=== PATIENT | male | born 1950 ===

== ENCOUNTER 2021-06-02 13:27 | Emergency (ER) | payer OTHER ==
[2021-06-02 14:00] VITALS: RESP 18; TEMP 98.4
--- NOTE | 2021-06-02 16:15 | ED ---
General Adult HPI - General Chief complaint: Recheck/Abnormal Lab/Rx Stated complaint: needs covid test Time Seen by Provider: 06/02/21 17:00 Source: patient, RN notes reviewed Mode of arrival: ambulatory Limitations: no limitations - History of Present Illness Initial comments: 70-year-old male, alert and oriented 4, presents to the emergency room with complaints [place] He denies any symptoms, he denies any exposures. Patient denies any medical problems. He is a nonsmoker. Severity scale (1-10): 0 Associated Symptoms: denies other symptoms Treatments Prior to Arrival: none - Related Data Allergies Allergy/AdvReac Type Severity Reaction Status Date / Time No Known Allergies Allergy Verified 06/02/21 14:00 Review of Systems ROS Statement: Those systems with pertinent positive or pertinent negative responses have been documented in the HPI. ROS Other: All systems not noted in ROS Statement are negative. Past Medical History Past Medical History: No Reported History History of Any Multi-Drug Resistant Organisms: None Reported Additional Past Surgical History / Comment(s): Kidney stone removal Smoking Status: Former smoker Past Alcohol Use History: None Reported Past Drug Use History: None Reported General Exam Limitations: no limitations General appearance: alert, in no apparent distress Head exam: Present: atraumatic, normocephalic, normal inspection Eye exam: Present: normal appearance, PERRL, EOMI. Absent: scleral icterus, conjunctival injection, periorbital swelling ENT exam: Present: normal exam, normal oropharynx, mucous membranes moist Neck exam: Present: normal inspection, full ROM. Absent: tenderness, meningismus, lymphadenopathy, thyromegaly Respiratory exam: Present: normal lung sounds bilaterally. Absent: respiratory distress, wheezes, rales, rhonchi, stridor, chest wall tenderness, accessory muscle use, decreased breath sounds, prolonged expiratory Cardiovascular Exam: Present: regular rate, normal rhythm, normal heart sounds, other (Blood pressure elevated 206/114 in triage, patient denies history of hypertension.). Absent: systolic murmur, diastolic murmur, rubs, gallop, clicks GI/Abdominal exam: Present: soft, normal bowel sounds. Absent: distended, tenderness, guarding, rebound, rigid Extremities exam: Present: normal inspection, full ROM, normal capillary refill. Absent: tenderness, pedal edema, joint swelling, calf tenderness Back exam: Present: normal inspection, full ROM. Absent: tenderness, CVA tend erness (R), CVA tenderness (L), muscle spasm, paraspinal tenderness, vertebral tenderness, rash noted Neurological exam: Present: alert, oriented X3, CN II-XII intact Psychiatric exam: Present: normal affect, normal mood Skin exam: Present: warm, dry, intact, normal color. Absent: rash Course Vital Signs 06/02/21 06/02/21 13:56 18:21 Temperature 98.4 F Pulse Rate 90 83 Respiratory 18 18 Rate Blood Pressure 206/114 177/98 O2 Sat by Pulse 96 99 Oximetry Medical Decision Making - Medical Decision Making Patient's Covid test is negative today. Blood pressure did come down to 177/98. He'll be discharged directed to follow up with his primary care doctor for elevated blood pressure here in the emergency room today. Patient was offered lab work and he refused. Spoke with patient at length regarding the damage that prolonged hypertension can cause and the importance of followup - Lab Data Lab Results 06/02/21 Range/Units 17:11 Coronavirus (PCR) Not Detected (Not Detectd) Disposition Clinical Impression: Well adult exam Disposition: HOME SELF-CARE Condition: Good Additional Instructions: Please follow-up with your doctor regarding elevated blood pressure in the emergency room today. Return to the emergency room with any new or worsening symptoms having chest pain, shortness of breath or fevers. Is patient prescribed a controlled substance at d/c from ED?: No Referrals: None,Stated [Primary Care Provider] - 1-2 days Time of Disposition: 18:10
[2021-06-02 18:22] VITALS: BP 177/98; PULSE 83
== END 2021-06-02 18:46 | disposition home or self-care (01) ==
LOC: EC 13:27
DX: Z20.822 Contact with and (suspected) exposure to COVID-19 (principal); Z87.891 Personal history of nicotine dependence
CPT/HCPCS: 87635; 99283